=== PATIENT | male | born 1960 ===

== ENCOUNTER 2019-06-01 13:03 | Day surgery (SDC) | payer OTHER ==
[~2019-06-01] VITALS: Ht 182.9 cm; Wt 68.7 kg
--- NOTE | 2019-06-01 14:40 | NUR ---
06/01/19 1440 Cory Raygoza History, Chart, Medications and Allergies reviewed before start of procedure.MONITOR INTACT WITH CONTINUOUS PULSE OXIMETRY AND INTERMITTENT BP.3-LEAD EKG REVIEWED WITH PHYSICIAN PRIOR TO START OF PROCEDURE.O2 VIA N/C INTACT THROUGHOUT SEDATION/PROCEDURE. Patient confirms NPO status and agrees with scheduled surgery.PATIENT DETERMINED TO BE ASA APPROPRIATE FOR PROPOFOL SEDATION PRIOR TO START OF PROCEDURE BY DR. PATRICIA.
--- NOTE | 2019-06-01 15:26 | NUR ---
"DAY SURGERY RN | REPORT TO MAXX MACDONALD"
== END 2019-06-01 23:53 | disposition home or self-care (01) ==
LOC: ORSCMMR 13:03 → ORD 14:30 → ORSCMMR 23:53
PROVIDERS: Internal Medicine Gastroenterology
PROC: 0DJD8ZZ Inspection of Lower Intestinal Tract, Via Natural or Artificial Opening Endoscopic (ICD-10-PCS; principal; 2019-06-01 14:30)
DX: Z12.11 Encounter for screening for malignant neoplasm of colon (principal); Z86.010 Personal history of colon polyps; Z79.82 Long term (current) use of aspirin
CPT/HCPCS: 74270; J2704; J7120